=== PATIENT | female | born 1955 | race Caucasian/White ===

== ENCOUNTER 2025-05-11 16:21 | Emergency (ER) | payer MEDICARE, SELFPAY ==
[2025-05-11 16:22] VITALS: BP 137/107
[2025-05-11 18:15] VITALS: BMI 25.1
[2025-05-11 18:21] VITALS: BP 139/76
--- NOTE | 2025-05-11 19:27 | ED.GENMED ---
History of Present Illness
General
Chief Complaint: Musculo-Skeletal Complaint
Source: patient
Time Seen by Provider: 05/11/25 19:08
History of Present Illness
History of Present Illness:
69-year-old female presenting to the ER with nontraumatic right knee pain and swelling that woke her up from sleep around 3 AM this morning, yesterday notes that she was lifting some heavier logs but states no direct injury to the knee so she is
unsure as to if this caused any issues. Patient without any fevers, chills, rigors. She does note a previous history of arthroscopic surgery to the same meniscus. She states she has an appointment with orthopedics, Dr. Grimaldo, tomorrow morning.
She states that at rest the pain is tolerable however when she goes to move her knee or ambulate it causes considerable pain. She arrived to the ER tonight with crutches. No other concerns presently.
Past History
Past History
ED Past Medical History: None
ED Past Surgical History: Orthopedic
Social History
Tobacco: Non-smoker
Alcohol: None
Drug: None
Personal:
Living: with family
Review of Systems
Review of Systems
All Other Systems: ROS reviewed and negative except as documented in HPI and ROS
Phy Exam
Physical Exam
Physical Exam:
GENERAL: Alert , in no apparent distress
EYE: conjunctiva clear
Head: Normocephalic atraumatic
NECK: Supple,
ENT: mmm.
LUNGS: no acute respiratory distress
NEUROLOGICAL: Alert and oriented
SKIN: Warm and dry, skin intact.
MUSCULOSKELETAL: right knee: There is soft tissue swelling with mild joint effusion appreciated to the right knee. Range of motion is limited secondary to pain. There is no overlying erythema or increased warmth. Patient's bilateral feet are
somewhat cool to the touch but has easily palpable pedal and tibial pulses. Cap refill less than 2 seconds and sensation is grossly intact to light touch. No tenderness to the gastrocnemius or obvious edema noted.
PSYCH: Normal and appropriate interaction.
Scores
Heart Failure Risk
Heart Failure Risk Score: Not Applicable
Heart Score for Chest Pain Patients
STEMI patient?: Not applicable
Withdrawal Assessment of Alcohol
Withdrawal Assessment Completed?: Not applicable
Course
Orders/Labs/Results
Orders:
Orders
05/11/25 16:28
CR Knee- Right 4 Or More View* Urgent
Comment:
Reason For Exam: Injury
05/11/25 16:32
US Periph Venous LOWER Ext RT Urgent
Comment:
Reason For Exam: calf pain
05/11/25 19:30
Ibuprofen [Motrin] 800 mg PO NOW STA
Oxycodone/Acetaminophen [Percocet 5/325] 1 tablet PO NOW STA
Vital Signs
Initial and Last Documented VS:
Initial Vital Signs
Temp Pulse Resp BP Pulse Ox
98.8 F 96 16 137/107 99
05/11/25 16:22 05/11/25 16:22 05/11/25 16:22 05/11/25 16:22 05/11/25 16:22
Last Documented Vital Signs
Temp Pulse Resp BP Pulse Ox
98.8 F 96 18 136/82 99
05/11/25 16:22 05/11/25 19:42 05/11/25 18:21 05/11/25 19:42 05/11/25 19:42
MDM/Problems Addressed
Differential Diagnosis Includes:
Osteoarthritis
Gout
Pseudogout
Fracture
Ligamentous Injury
Meniscal injury
DVT
Lyme/other infectious etiology
MDM/Problems Addressed:
69-year-old female presenting to the ER for evaluation of nontraumatic right knee pain. Reported in triage that she was also having some calf pain on the right side but denied this to me. Ultrasound and x-ray had been ordered from triage with the
ultrasound being negative for DVT. The x-ray does show a joint effusion and possible findings consistent with pseudogout. I did offer the patient to perform a arthrocentesis however given that she has the appointment with orthopedics tomorrow
patient was okay waiting for this visit. In the meantime we will treat her with a course of anti-inflammatories and I did prescribe her a dose of Percocet for pain to be used as needed. RICE recommendations discussed. Patient otherwise stable for
discharge home
*Radiology
Radiology exam reviewed: radiology read reviewed
*Pulse Oximetry
SaO2: 99
Oxygen Mode of Delivery: Room air
Patient hypoxic: no
*Critical Care Note
Total Time (30-74mins, 75-104mins- exclusive of procedures): Not Applicable
ED Attending Note
-
Portions of this chart may have been created with voice recognition software.� Occasional wrong word or��sound alike� substitutions may have occurred due to the inherent limitations of voice recognition software.
Discharge Plan
Departure
Patient Disposition: Home (Routine Discharge)
Date of Disposition: 05/11/25
Time of Disposition: 19:27
Patient with high blood pressure during this ER visit?: Yes
Discharge Problem:
Pain in right knee
Instructions: Knee Pain (DC)
Prescriptions:
New
naproxen 500 mg tablet
500 mg PO BID 7 Days Qty: 14 0RF
oxycodone-acetaminophen [Percocet] 5-325 mg tablet
1 tab PO Q6HPRN PRN (Reason: pain) Qty: 5 0RF
Referrals:
UNKNOWN - PT DOES,NOT KNOW [Family Provider]
Interventions
Interventions:
*Risk Screen - Suicide Last Done: 05/11/25 18:19
*General Assessment Last Done: 05/11/25 18:19
*Neglect/Abuse Screening Last Done: 05/11/25 18:19
*ED- Fall Risk Assessment Last Done: 05/11/25 18:19
*ED COVID-19 Vaccine History Last Done: 05/11/25 18:19
*Nursing Disposition Last Done: 05/11/25 19:48
ED-Musculoskeletal Assessment Last Done: 05/11/25 18:19
Discharge Date and Time
Discharge Date/Time: 05/11/25 19:48
Print Language: SYRIAC
[2025-05-11 19:42] VITALS: BP 136/82
[2025-05-11] MEDS: PERCOCET 5/325 1 TABLET PO (19:43)
[2025-05-11] MEDS: MOTRIN 800 MG PO (19:44)
== END 2025-05-11 19:48 | disposition home or self-care (01) ==
LOC: EMR 16:21
PROVIDERS: EMERGENCY PHYSICIAN Emergency Medicine
DX: M25.561 Pain in right knee (principal)
CPT/HCPCS: 99284; 73564; 93971